=== PATIENT | female | born 1935 | race Caucasian/White ===

== ENCOUNTER 2021-02-28 15:00 | Inpatient (IN) | payer OTHER, MEDICARE ==
[~2021-02-28] VITALS: Ht 158 cm; Wt 66.2 kg
[2021-02-28] MEDS ORDERED: ACETAMINOPHEN500 M1 PO (17:07)
[2021-02-28] MEDS ORDERED: PROAIR HFA8.5 GM INH (17:10)
[2021-02-28] MEDS ORDERED: XANAX 0.25 MG0.25 MG PO (17:11)
[2021-02-28] MEDS ORDERED: TESSALON PERLE100 MG PO (17:12)
[2021-02-28] MEDS ORDERED: CALCIUM + D3 E1 EACH PO (17:12)
[2021-02-28] MEDS ORDERED: DRIZALMA SPRINK20 MG PO (17:13)
[2021-02-28] MEDS ORDERED: PROLIA60 MG/1 ML SUBQ (17:13)
--- NOTE | 2021-02-28 18:28 | NUR ---
86 YEAR OLD FEMALE ARRIVES TO UNOT VIA ROD ER ACCOMPNIED BY THIS RN.HAS BEEN LIVING AT [facility] IN INDEPENDENT LIVING [facility] WITH ONELIA. PT REPORTS MULTIPLE STRESSORS INCLUDING ACUTE RIGHT BACK PAIN WITH SCIATICA,URI-SINCE EARLY NOV. SISTER AND DX WITH DEMENTIA. REPORTS SHE FEELS OVERWHELMED AND INCREASINGLY ANXIOUS AND DEPRESSED TO POINT WHERE SHE CAN NOT FUNCTION,NOT EATING OR SLEEPING. PLEASANT AND COOPERATIVE DURING ADMISSION INTERVIEW-ALERT ORIENTED X 4-GAIT STEADY WITHOUT ASSISTIVE DEVICES. DENIES PAIN AT THIS TIME.ORIENTEDTIO ROOM AND UNIT. SON ISABELL HERNADEZ DPOA CONTACTED FOR CONSENT TO TREAT.
[2021-02-28 18:49] VITALS: BP 124/66
[2021-02-28 19:50] VITALS: BP 132/73
[2021-02-28 20:09] VITALS: BP 132/73
[2021-03-01 09:28] VITALS: BP 132/73
[2021-03-01 10:37] LABS: CHOLESTEROL 156 mg/dL (<200); HDL CHOLESTEROL 71 mg/dL (>40); LDL CHOLESTEROL 73 mg/dL (<100); TC:HDL 2.2 Ratio (Not establshd); TRIGLYCERIDE 60 mg/dL (<150); VLDL 12 mg/dL (<40)
--- NOTE | 2021-03-01 18:28 | NUR ---
Natalia was alert and oriented x4 this shift. She presented as overly worried this shift and anxious but was cooperative and pleasant. Pt's medications had not been restarted at admission, therefore they were reviewed with Dr. Matthews this morning and restarted. Initially, pt's xanax was ordered as 0.25mg q12PRN but when explained to pt she voiced, "I'm worried that i'm hooked on them". This was communicated with Dr. Matthews and he met with pt and d/c'd xanax and started seroquel 25mg TID. First dose of seroquel was given this afternoon and in the middle of afternoon group pt stated she couldn't think anymore and felt dizzy, and tired. This RN walked pt to her room where she was a little unsteady on her feet and was provided a rivera as an alternative call light so pt did not get up on her own. Pt laid down and took a little nap. Pt's symptoms were communicated with Dr. Matthews and pt spoke to him as well. Pt's seroquel dose was decreased to 12.5 mg TID, first dose to be given tonight at HS. Pt voiced extreme worries regarding seroquel stating "I felt like I was going to ". This RN spoke to pt at length and also spoke to pt's son with pt on speaker phone. Pt was encouraged to try the lower dose of seroquel tonight at HS and if pt reacts poorly then to not take it in the morning and spek to Dr. Matthews about it tomorrow. This was also relayed to Dr. Matthews and he agreed. Despite pt being very cautious and nervous to take HS seroquel, she agreed to give it a try. Pt voiced c/o a GIANG and received tylenol PRN this evening. Pt voiced she is getting over a cold and has had a productive cough this shift; sputum is clear at this time. Pt voiced some constipation and received PRN mag hydroxide per pt request. She was medication and meal compliant this shift, taking pills whole without difficulty. She expresseed anxiety regarding the SLUMS test given today but when educated on the effects of xanax and the possibility of it causing confusion pt stated "well I'm already getting that". Pt did have some moments of forgetfulness throughout the day. Pt is currently ambulating steadily on the unit and socializing with staff. Will continue to monitor.
--- NOTE | 2021-03-01 18:37 | NUR ---
Pt's daughters number, Aydee, is .
--- NOTE | 2021-03-01 19:09 | NUR ---
late entry Assumed care on 02/28/21 @ 1900, spoke to dtr Aydee 3 times, order obtained for Xanax 0.125 HS p.o. for anxiety. A&Ox3 takes meds whole, bm today on 02/28/21. Hearing aides provided and at HS put on tree marker in the med room. Will continue to monitor for safety and comfort as per unit protocol.
[2021-03-01 19:17] VITALS: BP 149/75
--- NOTE | 2021-03-01 19:23 | NUR ---
Assumed care on 03/01/21 @ 1900, in her room on the phone with her son. Daughter called and when she was finished with the son's call, assisted with calling her daughter. Cooperative with assessment, HRRR, Lungs CTA, ABD Nx4Q, reports no BM today, even after MOM. Denies AH/VH, reports less depression /10 and more anxiety 10/10. Patient agreed to have her snack before taking meds and going to bed upon medication administration.
[2021-03-01 19:40] VITALS: BP 149/75
[2021-03-02 01:06] LABS: GLYCOHEMOGLOBIN (HGB A1C) 5.4 % (4.8-5.6)
[2021-03-02 08:30] VITALS: BP 133/76
[2021-03-02 08:44] VITALS: BP 133/76
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
--- NOTE | 2021-03-02 12:39 | NUR ---
Resummed pt care this morning from overnight shift. Client was in room resting on bed. Client presented cheerful and pleasant at this time, though she presented with some anxiety at this time. Client was oriented 4x, and presented with questions and concerns about her medications. Client denied any depression at this time, though did state mild anxiety. Client denied any hallucinations at this time. Client also denied any suicidal or homicidal ideation at this time. Client lung sounds clear. Bowel sounds were present. Last BM 03/01. Client given all scheduled medications at this time. No further concerns at this time.
--- NOTE | 2021-03-02 12:51 | NUR ---
New admit to [facility] for major depressive disorder. On regular diet, eating 75-100% of first meals on the unit. Folate and B12 wnl. Healthy wt status, BMI 23.6. presents low nutrition risk
--- NOTE | 2021-03-02 18:40 | NUR ---
PATIENT DECLINE SUPPER, REQUESTED TO SOUP, AND SALAD. DIETARY NOTIFIED, AND THEY BROUGHT HER THE ORDER. PRN TYLENOL GIVEN FOR BACK OF NECK PAIN RATED 5/10, WHEN REASSESSED, PATIENT DECREASED TO 2/10. PATIENT IS FORGETFUL, SLIGHTLY CONFUSED AT TIMES BUT REDIRECTABLE. FAMILY BROUGHT TWO BOOKS, ADDRESS BOOK, AND SOME FAMILY PHOTOS. PATIENT NOTIFIED, NO SIGN OF ACUTE DISTRESS NOTED AT THIS TIME, WILL MONITOR FOR SAFETY.
[2021-03-02 19:32] VITALS: BP 134/55
--- NOTE | 2021-03-02 21:24 | NUR ---
At onset of night cleaner pt was sitting in day room socializing calmly with a peer. This shift pt was overall pleasant, cooperative, and anxious. Pt was compliant with vital signs and medications. Affect was broad. Pt was alert and oriented x4. Pt spoke with nurse about how she feels "shakey" and anxious. Pt talked about how she has thoughts about not loving her , but she does love her and she finds these thoughts disturbing. Pt also talked about her taking care of her is stressful but she is also sad that eventually he will need to move for more care. Pt talked about how her sister recently. Pt complained of her left arm hurting. Pt stated she had a full cardiac workup completed and it came back as unremarkable. Pt believes she needs an x-ray. Pt talked about how she wants to get a therapist when she leaves to have someone to talk to. Pt denied SI, HI and AVH. Pt is up ad kane and low fall risk. Will continue to monitor.
[2021-03-03 08:00] VITALS: BP 133/58
[2021-03-03 09:05] VITALS: BP 133/58
--- NOTE | 2021-03-03 12:22 | NUR ---
Assumed pt care this am from overnight shift. Client was in activity area sitting couch and watching tv with peers. Client presented anxious and pleasant at this time. When asked about anxiety and depression, client initially stated "I feel funny- my arm tingles-it feels unsettling." Client education given about physical symptoms of anxiety at this time. Client stated that she "may be having some depression and anxiety from being here." Client stated that it was moderate and stated that tylenol helped with her restlessness. Tylenol given for restlessness from pain at this time as client expressed her restlessness was painful 5/10 in her back and legs. Complete pain relief provided by tylenol at this time. Client denied any hallucinations or anxiety at this time. Client also denied any suicidal or homicidal thoughts, but stated that "I would be okay if I pass in my sleep." Client assessed for intent at this time, and none found. Client encouraged to express this to provider and cm when she met with them. Client lung sounds were clear and diminished in left quadrant. Client bowel sounds normal with last BM 03/01. Client requested to be put on daily stool softener. Request was stated to provider by this nurse, and provider put client on stool softener at this time. During morning med pass, pt education was given about medications and about expressing needs. Client encouraged to write a list of medical and social work needs if applicable so that she would communicate her thought process to providers/workers, and have less anxiety. Seroquel increased to 25 mg TID in order to help with anxiety after meeting with provider. No further concerns at this time.
--- NOTE | 2021-03-03 16:55 | NUR ---
TRA and Dr. Horton met with the Pt concerning discharge planning. Pt was given a recommendation of assisted living. Pt recognized that she was in need of more assistance but brought up concerns of her not agreeing to move. The option of 24hr caregivers was also talked about. Pt continues to have concerns about a higher level of care. Pt also expressed feelings of loss of control over handling her own affairs. Pt would like a meeting with her family to discuss the issues. A family has been scheduled for 03/04/2021 @ 10am.
[2021-03-03 19:29] VITALS: BP 148/63
--- NOTE | 2021-03-03 21:27 | NUR ---
At onset of car shifter pt was sitting in day room watching TV and talking with female peers. This shift pt was up ad kane, alert and oriented x4, with broad affect. Pt was compliant with medication and vital signs. Pt stated that overall she believes the seroquel is working. Pt stated in the morning she felt very anxious, but by the afternoon she felt better and had "a wonderful afternoon." Pt appeared less anxious to telegraphic typewriter repairer in the evening. Pt did not ruminate on issues with as much as the previous night. Pt denied SI, HI and AVH. Will continue to monitor. Pt is low fall risk.
[2021-03-04 09:27] VITALS: BP 117/60
--- NOTE | 2021-03-04 10:50 | NUR ---
ANXIOUS FACIAL EXPRESSION NOTED DURING AM ASSESSMENT AND MEDICATION PASS. HAS MULTIPLE REQUESTS/CONCERNS INCLUDING WANTING HER HEARING AIDES TO REQUESTS FOR RN TO CALL DR FOR "MOISTERIZING EYE DROPS" REQUESTED AND RECEIVED TYLENOL 650MG PO PRN AT 0700 FOR GENERALIZED PAIN RATED A 4 ON 1-10 SCALE-DOES VERBALIZE RELIEF WITHIN 45 MINUTE REASSESSMENT. ALSO REPORTING CONSTIPATION YET STATING SHE HAS HAD MULTIPLE LIQUID STOOLS THE PAST FEW DAYS? GAIT STEADY . ORIENTED X4. DENIES SI/SH/HI.
--- NOTE | 2021-03-04 14:03 | NUR ---
CO CONSTIPATION. ABDOMEN GRLV-[id number]-[id number]-BS ACTIVE X4. DULCOLAX SUPPOSITORY GIVEN RECTALLY AT 1245-PT REPORTS VERY POOR RESULTS STATING WENT "JUST A LITTLE BIT" WHEN SUPPOSITORY INSERTED THERE IS NO STOOL FELT IN RECTAL VAULT. REQUESTING FLEETS ENEMA-DR NAVA CONTACTED-NO ORDER PER PT REQUEST FOR FLEETS ENEMA-O RECEIVED FOR KUB-PT INFORMED OF ABOVE-REMAINS IN ROOM REFUSES TO GO TO GROUP STATING "DOESN'T FEEL LIKE SHE WANTS TO TODAY" READING NOVEL IN BED-APPEARS IN NO ACUTE DISTRESS. KUB ABDOMNEN COMPLETED AT BEDSIDE AT APPROS. 1325
--- NOTE | 2021-03-04 15:05 | NUR ---
MOM 15CC PO PRN AT 1453 FOR REPORTED CONSTIPATION-CONTINUES TO REPORT MULTIPLE SOMATIC CONCERNS INCLUDING LEFT ARM PAIN WHICH IS CHRONIC IN NATURE-LIPS TINGLING,HEAD FEELING FULL,RUMINATING ABOUT ALL OF THE ABOVE. ANXIOUS FACIAL EXPRESSION AND PRESSURED SPEECH.GIVEN FEEDBACK REGARDING SELF SOOTHING RELAXATION TECHNIQUES IE DEEP BREATHING,WALKING IN HALLWAYS,COMING OUT OF ROOM TO SIT WITH PEERS AND COLOR ETC-SHE IS NOT RECEPTIVE TO ATTEMPTING ANY OF ABOVE AT THIS TIME STATING THEY ARE "NOT HELPING"WILL CONTINUE TO ENCOURAGE NON-MED SELF SOOTHING,RELAXATION TECHNIQUES.
--- NOTE | 2021-03-04 15:54 | NUR ---
REPORTED BY RN ON UNIT AND RIVER PILOT THAT PT CALLED THEM TO HER ROOM AT SEPERATE TIMES REQUESTING SHE BE ASSIGNED A NEW NURSE STATING THIS RN WASNOT "MEETING MY NEEDS" WHEN THIS RN INQUIRED ABOUT THIS STATEMENT PT STATES "I DON'T THINK YOU SHOULD TELL ME TO LEAVE MY ROOM- I AM THE PATIENT AND I WANT TO BE IN MY ROOM I SHOULDN'T BE TOLD OTHERWISE"
--- NOTE | 2021-03-04 17:27 | NUR ---
TRA and Dr. Horton participated in a family meeting. The Pt was in this meeting. Riley, Aydee and Jai were on the phone during the meeting. Nueropsy testing was discussed. The Pt and family are in agreement to the testing. Recommendation for and AL level of care was given. Aydee stated she has spoken with [facility] concerning AL. Pt and her are currently on a waiting list for and AL apartment, however there are only 3 apartments and unknown when they would come up on the list. Aydee stated she is in the home 4 to 5x per week. Pt expressed her concerns with caretaking and living with her . THe family is willing to try 24/7 caregiver in the home to lift care burden off the Pt. If unsucessfull the family will work of Pt and her going into and AL placement. Medications were discussed and possible setting the Pt up with Dr. Plaza for follow up otpt psychiatry. Pt will discharge on Sunday. TRA will continue to follow
[2021-03-04 19:45] VITALS: BP 111/55
[2021-03-04 19:54] VITALS: BP 111/55
--- NOTE | 2021-03-04 20:19 | NUR ---
Assumed care on 03/04/21 @ 1900, seated in the day room wataching New Years Hanna music on TV. A&Ox4 anxious and rapid speach noted. gait steady low fall risk. HRRR, Lung sounds CTA bilat, ABD N x 4Q. Reports BM today. Reports that she wants to have more BMs. Made a phone call to her to wish him a happy NYEVE. Will continue to monitor for comfort and safety as per unit protocol.
[2021-03-04 22:06] LABS: SYPHILIS AB Non Reactive (Non Reactive)
[2021-03-05 08:25] VITALS: BP 125/59
[2021-03-05 08:58] VITALS: BP 125/59
--- NOTE | 2021-03-05 18:02 | NUR ---
Alert and orientated X4. Fixated on bowel movement. Asking about MOM and prune juice and stating that she was making frequent trips to the bathroom. Reading without s/o distress in room. Calm and cooperative. Denies SI/HI. Breath sounds clear. Reg HR auscultated. Color pink with brisk capillary refill and palpable peripheral pulses. No edema noted. Independent with voiding. Active bowel sounds over soft, rounded abdomen. Ambulates with regular, steady gait. Primary nursing care done by Jose Briseno LPN.
--- NOTE | 2021-03-06 02:57 | NUR ---
Assumed pt's care this HS shift. ALert and oriented x4. Forgetful. Pt cooperative with care. Did voice anxiety 09/11 and mild depression. Pt denied SI/HI/ AVH. Took meds whole with no issues. Pt voiced having multiple watery stools in the day time. Pt currently on schld docusate BID. Pt educated that docusate can cause diarrhea. HS docusate held this shift. Pt came out of her rm and asking when next she could take medicine. Pt voiced she her head hurt and body as well but it wasn't like "hurt hurt". Pt was unable to clarify what she meant. Nursing gave pt tylenol. Pt slept and came out less than hour later, wanting to count the next time she could take her meds. Pt was starting to get fixated on her seroquel and also ask nursing to explain to her again why she did not take the docusate. Pt currently in her room, sleeping. Nursing to continue to monitor.
[2021-03-06 08:49] VITALS: BP 129/63
[2021-03-06 08:57] VITALS: BP 129/63
--- NOTE | 2021-03-06 18:32 | NUR ---
Assumed pt care this morning from overnight shift. Pt presented in an anxious but mostly pleasant mood at this time and was oriented 4x. Pt expressed depression and anxiety at this time, and was worried about family affairs, personal issues with placement, and general condition management per self report. Pt expressed that she did not think her family meeting had gone well, and that she believed that she was not ready to manage her anxiety independently. Pt also expressed worries about taking care of her , and worries about returning home without addressing her own racing thoughts. Likewise, pt was experiencing anxiety about not having a bowel movement that was solid for a few days, and wanted increased laxatives and enemas for this. Dr. Matthews notified about this preoccupation- as client orders foods high in fiber and does not eat much- and d/c colace and added miralax to MAR to help with bowel movements for client without overtaxing client. Client denied any hallucinations at this time. Client also denied any suicidal or homicidal ideation at this time. Client lung sounds clear and diminished with slight crackles in left lower lobe from recent pneumonia dx that she is recovering from. Bowel sounds present. Stomach flat and soft. Client has been redirected several times during this shift and has been redirected to use coping mechanisms for anxiety. Have spoken to client's family, and passed along message to Dr. Matthews to speak to client's family per request of client's family as well. No further concerns at this time.
[2021-03-06 19:39] VITALS: BP 118/94
--- NOTE | 2021-03-06 20:13 | NUR ---
Assumed care on 03/06/21 @ 1900, HRRR, Lungs CTA ABD N x 4Q Denies Hallucinations, reports Anxiety not too bad, and currently has none of the shakiness that she sometimes feels with anxiety. Denies depression, SI/HI. Reports a sore area in her throat since she had the lung infection. Will continue to monitor for safety and comfort.
[2021-03-06 20:21] VITALS: BP 118/94
[2021-03-07 08:45] VITALS: BP 146/64
[2021-03-07 08:58] VITALS: BP 112/49
--- NOTE | 2021-03-07 12:01 | NUR ---
RT Progress Note- Natalia has been active in both the milieu and recreation therapy groups since her admission. She participates well in group discussions and is open to talking about anxiety in her life. She has identified coping skills for managing life stressors that trigger her anxiety and has put them to use on the unit (reading, walking, confiding in other patients.) PUBLIC WORKS MANAGER will continue to encourage her participation throughout admission.
[2021-03-07 19:45] VITALS: BP 146/64
--- NOTE | 2021-03-07 19:52 | NUR ---
Assumed pt care this morning from overnight shift. Pt presented alert and oriented 4x and was pleasant and anxious at this time. Pt expressed generalized pain during this time, and was given tylenol to help relieve this. PRN cough lozenge and prn mavis for cough given as well. Pt denied any depression, but did admit to anxiety, stating that she missed her family. Client denied hallucinations and denied si/hi. Client has been fixated on bowel movements, and continues to voice watery stools, but does not want to show watery stools to staff when asked so that staff can clarify. Client keeps asking for laxatives or other means of elimination. Client has been taking all medications without issue, though does voice not feeling ready to go home, and feeling like she needs further medication. Client also voices that she would like a therapist when she goes home, and that she would like to continue outpatient therapy here, but would like outpatient therapy with a female psychiatist as male doctors make her uncomfortable. Client has stated that she likes talking to nursing as she feels like her own family is too boisterous and overbearing and demeaning of her time. Client was encouraged to use coping skills and continue to go to groups to gain personal independence and further skills. No further concerns at this time.
[2021-03-07 20:34] VITALS: BP 146/64
[2021-03-08 09:00] VITALS: BP 129/75
[2021-03-08 09:39] VITALS: BP 129/75
--- NOTE | 2021-03-08 12:11 | NUR ---
PATIENT SLEPT 9.6 HOURS LAST NIGHT. SHE IS FIXATED ON HER BM'S. SHE DID NOT EAT MUCH AT BREAKFAST BECAUSE SHE STATES SHE HAS NOT HAD BM IN 4 DAYS. HOWEVER, SHE AND NURSES HAVE REPORTED LOOSE WATERY SMALL STOOLS OVER LAST 4 DAYS. PATIENT STARTED ON MIRALAX THIS MORNING. PATIENT'S DAUGHTER AND SON (dpgal) CALLED AND SPOKE WITH THIS NURSE, DR NAVA AND PATIENT. PATIENT IS HAVING NEURO TESTING AT THIS TIME WITH DR ALMONTE. PATIENT DENIES SIDE EFFECTS OF SEROQUEL. SHE STATES SHE FEELS LESS ANXIOUS AND IS HOPING THE SEROQUEL WILL WORK FOR HER. PATIENT IS SCHEDULED TO DC HOME 03/09/20. PATIENT TAKES HER MEDS WHOLE WITH WATER. SHE DENIES SI/HI/AVH. DENIES PAIN. SHE PARTICIPATED IN MORNING GROUP. CONTINUING TO MONITOR.
--- NOTE | 2021-03-08 18:11 | NUR ---
Pt has an inital appointment with Dr. Plaza for 04/05/2020 @ 1300. TRA called Riley and Aydee concerning discharge. TRA left a message on both VM's requesting a call back. Aydee returned the call. Aydee expressed some concerns during the call about Pt expressing medication side effects, not understading her meds, forgetting where she lives, forgetting who she is, Pt being " verbally aggressive", Pt being " jittery", Pt having mood changes during diffrent times of the day. TRA informed a conversation would be had with the Pt concerning the matter. Aydee also expressed being unhappy about the doctor only communicating with JULISSA Lin. SW also spoke with the Pt on the matter. Pt expressed concerns about her medication and information on the medications. Pt also talked about her grief surrounding the of a sister and her 's decline from dementia. Pt had no other concerns. TRA provided emotional support during this time. TRA informed the Pt she may benefit from psychotherapy to assist with grief. TRA did informed Dr. Horton on the Pt's concerns. TRA also informed Kenyatta Jerez of the concerns. Discharge was set for 03/09/2020 @ 1300. The family will tansport
[2021-03-08 19:40] VITALS: BP 83/50
--- NOTE | 2021-03-08 19:52 | NUR ---
Assumed care on 03/08/21 @ 1900, ambulating ad kane throughout the mileu. Asking to call her son, assisted with doing so. Riley [phone]. Reports anxiety over going home, reports depression over the passing of her sisster recently. HRRR, Lungs CTA bilat, ABD normal to hyperactive. Reports BM today. A&Ox2-3. gives the president as a [employer], but cannot recall his name. Gives the date as Mar 08, but cannot give the year. Will continue to monitor for safety and comfort as per unit protocol.
[2021-03-08 20:47] VITALS: BP 83/50
[2021-03-09 08:30] VITALS: BP 134/66
[2021-03-09 09:03] VITALS: BP 134/66
[2021-03-09] MEDS ORDERED: SEROQUEL 50 MG50 MG PO (12:08)
[2021-03-09] MEDS ORDERED: LIPITOR 20 MG T20 M1 PO (12:08)
[2021-03-09] MEDS ORDERED: PROBIOTIC1 EAC1 PO (12:09)
[2021-03-09] MEDS ORDERED: PEPCID20 MG PO (12:10)
[2021-03-09] MEDS ORDERED: MIRALAX17 GM PO (12:10)
[2021-03-09 12:31] VITALS: BP 134/66
--- NOTE | 2021-03-09 20:31 | NUR ---
Assumed pt care this morning from overnight shift. Pt was anxious as she was going home today and voiced that she wasn't sure that she was ready. Pt presented alert and oriented 4x, and add was able to verbalize her anxiety and depression to staff, stating that she hoped that her family would be able to understand how she felt some slight anxiety and depression after treatment. Staff provided pt education on signs and symptoms, and stated that handouts would be included in pt discharge packet. Client denied any hallucinations at this time. Client also denied any si/hi. Client lung sounds were clear. Bowel sounds present. Client voiced watery stools but no diarrhea. Client's things were prepared for discharge during this shift. Client's clothing, books, and toiletries were placed in bags. Likewise, discharge paperwork printed and signed. Permission from JULISSA Anaya, given for release from treatment. Valuables (two wedding rings, and wallet) picked up from security and given to client. Client taken out of hospital via wheelchair and was picked up by son and . No further concerns at this time.
--- NOTE | 2021-03-10 08:17 | D ---
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 Generalized anxiety disorder. MEDICAL DIAGNOSES: Include upper respiratory infection, treated with Keflex. COVID-19 PCR negative. Chest x-ray within normal limits. Utilizing Tessalon Perles in the hospital. Cervical neuralgia, likely osteoarthritis. The patient had no growth on urine culture. Antibiotics were stopped. The patient is discharged into her independent living [facility]. Family will be organizing providing 24-hour assistance for her and her . DIET: Regular. ACTIVITY LEVEL: As tolerated. She does require 24-hour assistance. Should not drive. DISCHARGE MEDICATIONS: Tylenol 500 mg oral every 8 hours p.r.n. for pain, albuterol sulfate, ProAir inhaler 2 puffs q. 6 hours p.r.n. as needed for wheezing, calcium carbonate with vitamin D3 one tablet oral daily. Prolia syringe, was non-formulary here, to prevent bone resorption, continue home regimen, atorvastatin 25 mcg oral daily at bedtime for hyperlipidemia, Seroquel 50 mg oral 3 times a day, lactobacillus acidophilus probiotic 1 capsule oral daily, MiraLax 17 grams oral daily for bowel motility, famotidine 20 mg oral daily for GERD. The patient's aftercare, Dr. Gonzalez, her PCP, requires the patient to make an appointment with their office. Psychiatry followup will be with Dr. Natalia Plaza on 04/05/2021 at 1300, I believe that will be tele-video. LABORATORY DATA: The patient's laboratories this admission, hematology was within normal limits on 02/28. Chemistries within normal limits except ALT 22, alkaline phosphatase 55. Lipids, triglycerides 60, cholesterol 156, LDL 73, HDL 71. B12 level 754. Vitamin D normal at 56.7. Folate 21.9, normal. TSH normal 1.176. Urinalysis had some positive trace blood, 2+ leukocyte esterase, few [address] [address] DISCHARGE SUMMARY Name: NATALIA SARGENT Room #: [address] [place] [address] [place] ..#: [id number] Admission: 02/28/21 Attend Phys: Magdy Matthews, Discharge: 03/09/21 Date of : [birth year] Report #: [id number] leukocytes, otherwise negative. COVID-19 was not detectable on 02/28, 03/03, or 03/05. Syphilis serology was nonreactive on 03/02. Imaging done this admission, head CT done on 03/02 showed atrophy and moderate microvascular disease, no evidence of hemorrhage, mass effect or midline shift. She had an abdominal x-ray for constipation, showed moderate stool in the sigmoid colon, no evidence of obstruction. REASON FOR ADMISSION: Back on 02/28, an 86-year-old female in [facility], driving with her , Yves, had developed uncontrollable anxiety, worsening memory and cognition, not sleeping. Family brought her in. HOSPITAL COURSE: The patient was admitted to Geriatric Psychiatry Unit. There has not been a formal diagnosis of dementia. She screened an on the [facility] mental status examination. We did have her receive a neuropsych battery from Dr. Lowell Tanner, which did straight major neurocognitive disorder. Several telephonic family meetings were held. The patient has been a caregiver for her . She is clearly no longer appropriate. Her sister this past fall around the [employer] holidays. Her daughter, Aydee, just moved back to [facility] from [place]. That said, the patient's son, Héctor, is actually her first DPOA. We discussed with Héctor recommendations for assisted living placement. Family opted to go with her returning to their [facility] and family hiring attendant care and the daughter staying at nights for now. Family is aware that this is temporary measure. Concerns about the , who is 89, driving in the area were raised. I relayed my concerns to Jai Cintron, chief of security at [facility]. He will pass this concern on to the administration, he reported to me. The family also stated they took the 's keys away. The patient is stating good physical health. During the admission, we started her on Seroquel, titrated to 50 mg 3 times a day. She had a number of side effect complaints, but I think they were largely described more than actually happening, as she was having bowel movements for example when she complained of persistent constipation. The patient was not suicidal or homicidal at time of discharge, time to step down. VITAL SIGNS: On day of discharge, temperature 36.1, pulse 65, respirations 18, BP 134/66, weight 66.224 kg, BMI 26.5. MENTAL STATUS EXAMINATION: Well-developed, fairly nourished female with good hygiene. Attention and concentration, intact. Speech normal in rate. Thought process: Linear and goal rate. Thought content focused on discharge, getting to home. Mood and affect anxious, congruent. Memory known to be impaired. Insight and judgment fair. Fund of knowledge, no greater than average. [facility] [address] [place] [address] DISCHARGE SUMMARY Name: NATALIA SARGENT Room #: [facility] IN [facility]#: [id number] Admission: 02/28/21 Attend Phys: Magdy Matthews DO Discharge: 03/09/21 Date of : [birth year] Report #: [id number] The patient's prognosis is guarded given her age of 86 and having neurodegenerative disorder. <ELECTRONICALLY SIGNED> By: Magdy Matthews DO 03/10/21 0817 [id number] Magdy Matthews DO /nt
== END 2021-03-09 13:15 | disposition home or self-care (01) | DRG 57 ==
LOC: SBH 15:46
PROVIDERS: ADMIT Psychiatry & Neurology Psychiatry; ATTEND Psychiatry & Neurology Psychiatry
DX: G30.9 Alzheimer's disease, unspecified (principal); F02.81 Dementia in other diseases classified elsewhere, unspecified severity, with behavioral disturbance; N39.0 Urinary tract infection, site not specified; F01.51 Vascular dementia, unspecified severity, with behavioral disturbance; F32.9 Major depressive disorder, single episode, unspecified; Z20.822 Contact with and (suspected) exposure to COVID-19; F41.1 Generalized anxiety disorder; K21.9 Gastro-esophageal reflux disease without esophagitis; J06.9 Acute upper respiratory infection, unspecified; Z88.8 Allergy status to other drugs, medicaments and biological substances; Z91.041 Radiographic dye allergy status
CPT/HCPCS: 10880